=== PATIENT | female | born 1955 | race Caucasian/White ===

== ENCOUNTER 2017-06-08 14:24 | Day surgery (SDC) | payer MEDICARE, OTHER ==
[~2017-06-08] VITALS: Ht 167.6 cm; Wt 109.2 kg
[~2017-06-08 14:24] MED LIST: AMLO-147 PO; CARV12.579 PO; CLOP75TA4 PO; CYCL-319 PO; DICL75TA2 PO; GABA300C16 PO; GEMF600T60 PO; LOSA100T7 PO; LOVA20TA PO; METF500T4 PO; MONT10TA24 PO; NIT4 SL; OLAN20TA3 PO; OMEP40CA6 PO; TRAM50TA2 PO; TRAZ50TA18 PO; VENL-42 PO; ZOLP10TA5 PO
[2017-06-08] MEDS ORDERED: PROPOFOL 20 ML ONE ×2 (15:01→15:51)
[2017-06-08 15:05] VITALS: Ht 167.6 cm; Wt 109.2 kg
[2017-06-08 15:20] VITALS: BP 135/66; PULSE 53; RESP 24
[2017-06-08] MEDS ORDERED: OMEP40CA6 PO (15:32)
[2017-06-08] MEDS ORDERED: ADV25050 INHALATION (15:32)
[2017-06-08] MEDS ORDERED: proair INH (15:32)
[2017-06-08] MEDS ORDERED: levemir SC (15:32)
[2017-06-08] MEDS ORDERED: METF-480 PO (15:32)
[2017-06-08] MEDS ORDERED: NAPR-260 PO (15:32)
[2017-06-08] MEDS ORDERED: xarelto PO (15:33)
--- NOTE | 2017-06-08 16:01 | OPPN ---
Date/Time of Note Date/Time of Note DATE: 06/08/17 TIME: 15:56 Operative Report Preoperative Diagnosis Iron deficiency anemia History of colon polyps Postoperative Diagnosis 2 small sigmoid polyps were removed using snare and electrocautery Diverticulosis of the colon Internal hemorrhoids Operation/Procedure Performed Colonoscopy and polypectomy Surgeon see signature line certified first assistant None Anesthesia: MAC Estimated blood loss: none Transfusion Required none Specimen Sigmoid polyps Grafts/Implants none Complications none JAYDEN URIBE MD Jun 08, 2017 16:01
[2017-06-08 16:20] VITALS: BP 151/76; PULSE 89; RESP 20
--- NOTE | 2017-06-09 07:00 | GILP ---
DATE OF PROCEDURE: NAME OF PROCEDURES: Colonoscopy and polypectomy. SURGEON: Jayden Downs MD PREOPERATIVE DIAGNOSES: 1. Iron deficiency anemia. 2. History of colon polyps. POSTOPERATIVE DIAGNOSES 1. Colonoscopy all the way to the cecum. 2. Two sigmoid colon polyps were removed using the snare and electrocautery. 3. Diverticulosis of the colon. 4. Internal hemorrhoids. INDICATION FOR THE PROCEDURE: Ms. Ivory Patton is a 61-year-old female patient who was not ed to have iron deficiency anemia. The patient had history of colon polyps. The patient was schedu led for colonoscopy for further evaluation. The procedure and possible complications were well explained to the patient. The patient understood and consented to the procedure. DESCRIPTION OF PROCEDURE: Under the influence of anesthesia, the colonoscope was carefully introduc ed in the rectum and under direct vision, it was advanced all the way to the cecum. FINDINGS: Patient had 2 sigmoid colon polyps and they were removed using the snare and electrocaute ry. She was noted to have diverticulosis of the colon and internal hemorrhoids. She tolerated the procedure very well and there was no complication from the procedure. At the end of the procedures, she was awake with stable vital signs and she was discharged home to the care of her family. IMPRESSION: 1. Colonoscopy all the way to the cecum. 2. Two small sigmoid colon polyps were removed using the snare and electrocautery. 3. Diverticulosis of the colon. 4. Internal hemorrhoids. PLAN: 1. Await histopathology report. 2. Next screening colonoscopy in 5 years. Dictated By: JAYDEN FLEMING/MONICA Conf#: [id number] DID#: [id number]
== END 2017-06-08 16:12 | disposition home or self-care (01) ==
LOC: GIL 14:24
PROVIDERS: ATTEND Internal Medicine Gastroenterology
DX: K63.5 Polyp of colon (principal); D50.9 Iron deficiency anemia, unspecified; K57.30 Diverticulosis of large intestine without perforation or abscess without bleeding; K64.8 Other hemorrhoids; J44.9 Chronic obstructive pulmonary disease, unspecified; E78.5 Hyperlipidemia, unspecified; E11.9 Type 2 diabetes mellitus without complications; I10 Essential (primary) hypertension; E66.01 Morbid (severe) obesity due to excess calories; Z68.38 Body mass index [BMI] 38.0-38.9, adult
CPT/HCPCS: 82962; 88305